=== PATIENT | male | born 1985 | race Caucasian/White ===

== ENCOUNTER → 2016-03-08 | Day surgery (SDC) | payer OTHER ==
[2016-03-03 14:18] VITALS: BMI 36.0
--- NOTE | 2016-03-03 14:58 | PAT Medication Instructions ---
Service Date Mar 03, 2016. Current Home Medication List Albuterol Sulfate (Proair Hfa), 2 PUFFS INH PRN Carisoprodol (Soma), 350 MG PO BID Fentanyl (Duragesic), 50 MCG TD CQ72HR Gabapentin (Neurontin), 100 MG PO TID Methylprednisolone (Medrol), 4 MG PO UD Oxycodone/Acetaminophen 10MG/325MG (Percocet 10MG/325MG), 1 TAB PO QID PRN for N Medication Instructions For Your Scheduled Surgery Methylprednisolone (Medrol), 4 MG PO UD (to be completed prior to surgery) - Hold the following medications the morning of surgery: Carisoprodol (Soma), 350 MG PO BID - Take the following medications the morning of surgery with a sip of water: Gabapentin (Neurontin), 100 MG PO TID Albuterol Sulfate (Proair Hfa), 2 PUFFS INH PRN (bring with you to hospital morning of surgery) Fentanyl (Duragesic), 50 MCG TD CQ72HR Oxycodone/Acetaminophen 10MG/325MG (Percocet 10MG/325MG), 1 TAB PO QID PRN for N (okay to take up to 4 hours prior to surgery if needed) - Take the following medications as scheduled the night before surgery: Gabapentin (Neurontin), 100 MG PO TID Albuterol Sulfate (Proair Hfa), 2 PUFFS INH PRN Carisoprodol (Soma), 350 MG PO BID Fentanyl (Duragesic), 50 MCG TD CQ72HR Oxycodone/Acetaminophen 10MG/325MG (Percocet 10MG/325MG), 1 TAB PO QID PRN for N If you have any questions please call us at [phone] (Dai Barrera PA-C) or [phone] or [phone]
[2016-03-03 15:30] LABS: BASO % 0.2 %; BASO ABS # 0.02 K/uL (0-0.2); COMPLETE YES; EOS % 0.5 %; HEMATOCRIT 42.7 % (42-52); IG% 0.3 %; LYMPH % 29.5 %; LYMPH ABS # 3.42 K/uL (1.2-3.4); MEAN CELL VOLUME 86.6 fL (80-100); MEAN CORPUSCULAR HEMOGLOBIN 30.4 pg (25-34); MEAN CORPUSCULAR HGB CONC 35.1 g/dl (32-36); MEAN PLATELET VOLUME 9.2 fL (7.4-10.4); NEUT % 62.5 %; PLATELET COUNT 279 K/uL (130-400); RED BLOOD COUNT 4.93 M/uL (4.7-6.1)
[2016-03-03 16:02] LABS: BUN/CREATININE RATIO 13.9 (10-20); CALCIUM 9.4 mg/dl (8.5-10.1); CREATININE 0.82 mg/dl (0.60-1.40); POTASSIUM 3.6 mmol/L (3.5-5.1)
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
[~2016-03-08] VITALS: Ht 188 cm; Wt 126.6 kg
[~2016-03-08] MED LIST: ALBU1AER9 INH; CARI350T28 PO; CEFAZOLIN 3000 MG/65 ML D5W 65 ML IV SCH; CHECK SCOPOLAMINE PATCH PLACEMENT SCH; FENTANYL CITRATE INJ 50 MCG/1 ML 2 ML VIAL ONE; FNTTP50 TD; GABA-112 PO; LACTATED RINGER'S 1000ML IV SCH; METH1TAB81 PO; MIDAZOLAM HCL 1 MG/ML 2ML VIAL ONE; OXYC-106 PO; SCOPOLAMINE 1.5 MG TDSY TD SCH
--- NOTE | 2016-03-08 07:22 | History & Physical Bridge Note ---
H&P Re-Evaluation Bridge Note: I have examined the patient, reviewed the History & Physical and in the interval since the performance of the History & Physical I have noted the following changes of clinical significance: No changes noted
[2016-03-08 08:10] VITALS: BP 150/94; PULSE 94; TEMP 36.9; O2SAT 98; Ht 188 cm; Wt 126.6 kg
== END | disposition home or self-care (01) ==
LOC: C.ACU 03-03 13:48
PROVIDERS: ATTEND Orthopaedic Surgery Orthopaedic Surgery of the Spine
DX: M48.06 Spinal stenosis, lumbar region (principal); Z53.9 Procedure and treatment not carried out, unspecified reason